=== PATIENT | male | born 2000 | race Caucasian/White ===

== ENCOUNTER → 2024-01-11 15:17 | Outpatient (CLI) | payer OTHER, SELFPAY ==
[2024-01-11 16:21] LABS: Influenza A - CEPHEID Flu A NEGATIVE (NEGATIVE); Influenza B - CEPHEID Flu B NEGATIVE (NEGATIVE); Respiratory Syncytial Virus Negative (Negative)
[2024-01-11 16:25] LABS: COVID-19 CEPHEID 4-PLEX PCR Negative (Negative)
== END ==
PROVIDERS: Visit Provider Physician Assistant Medical
DX: J02.9 Acute pharyngitis, unspecified (principal); R05.9 Cough, unspecified
CPT/HCPCS: 0241U; 87070

== ENCOUNTER → 2024-02-20 09:28 | Outpatient (CLI) | payer OTHER, SELFPAY ==
--- NOTE | 2024-02-20 09:29 | DI.RAD.S_ITS ---
PROCEDURE: XR KUB INDICATIONS: Possible Kidney Stones TECHNIQUE: One view of the abdomen acquired. COMPARISON: None. FINDINGS: Surgical changes and devices: None. Bowel: Bowel gas pattern is normal. Moderate amount of stool in colon. Soft tissues: Question a 4 mm stone in the superior pole of the right kidney. Visualized solid organ contours appear normal in size. Bones: No suspicious bony lesions. IMPRESSION: 1. Question a 4 mm stone in right kidney. If clinically indicated, CT KUB would be helpful. Dictated by: Gio Mcneill M.D. on 02/20/2024 at 16:29 Approved by: Gio Mcneill M.D. on 02/20/2024 at 16:30
== END ==
PROVIDERS: Referring Provider Nurse Practitioner Family; Visit Provider Nurse Practitioner Family
DX: N20.0 Calculus of kidney (principal)
CPT/HCPCS: 74018

== ENCOUNTER → 2024-10-27 07:40 | Outpatient (CLI) | payer OTHER, SELFPAY ==
--- NOTE | 2024-10-27 07:41 | DI.CT.S_ITS ---
PROCEDURE: CT KIDNEY URETER BLADDER (KUB) INDICATIONS: recurrent kidney stones TECHNIQUE: Axial sections were acquired from the lung bases to the pubic symphysis. Coronal and sagittal reformats were performed. For radiation dose reduction, the following was used: automated exposure control, adjustment of mA and/or kV according to patient size. COMPARISON: None. FINDINGS: Image quality: Diagnostic Lower chest: Lung bases appear unremarkable. Mildly patulous distal esophagus. Normal heart size Liver: Solid organs are not well assessed without IV contrast. No contour deforming mass Gallbladder and biliary system: Unremarkable, nondilated Pancreas: No ductal dilation Spleen: Mildly enlarged at 15 centimeters Adrenals: No discrete nodules Kidneys: 8 x 5 x 5 millimeter stone is seen in the right proximal ureter, with mild upstream hydronephrosis. Many other stones are seen in both kidneys, the largest in the left kidney measures up to 7 x 4 millimeters. Vessels and lymph nodes: No abdominal aortic aneurysm. No pathologic lymphadenopathy by size criteria Bowel and peritoneum: No small bowel obstruction Nondilated appendix. No pathologic ascites Body wall: Unremarkable Pelvis: Bladder is unremarkable. Prostate is not well assessed on this study. Bones: No aggressive appearing osseous findings. IMPRESSION: Partially obstructing stone is seen in the right proximal ureter measuring 8 x 5 millimeters. Many other nonobstructing calculi are seen in both kidneys measuring up to 7 millimeters in the left. Other findings above. This study was marked in PACS as a result for communication and follow-up. Dictated by: Vince Valerio M.D. on 10/27/2024 at 9:25 Approved by: Vince Valerio M.D. on 10/27/2024 at 9:29
== END ==
PROVIDERS: PCP Family Medicine; Referring Provider Family Medicine; Visit Provider Family Medicine
DX: N20.0 Calculus of kidney (principal); R16.1 Splenomegaly, not elsewhere classified
CPT/HCPCS: 74176

== ENCOUNTER → 2024-11-24 15:45 | Outpatient (CLI) | payer OTHER, SELFPAY ==
--- NOTE | 2024-11-24 15:46 | DI.CT.S_ITS ---
PROCEDURE: CT KIDNEY URETER BLADDER (KUB) INDICATIONS: 24 y/o M w/ 8mm proximal right ureterolith, eval for passage TECHNIQUE: Axial sections were acquired from the lung bases to the pubic symphysis. Coronal and sagittal reformats were performed. For radiation dose reduction, the following was used: automated exposure control, adjustment of mA and/or kV according to patient size. COMPARISON: [facility], CT, CT KIDNEY URETER BLADDER (KUB), 10/27/2024, 7:49. FINDINGS: Image quality: Diagnostic. Lower Chest: No significant findings. URINARY: Right Kidney: Multiple nonobstructing nephrolithiasis. Mild hydronephrosis Right Ureter: Redemonstration of 8 mm calculus in the right proximal ureter. Left Kidney: Multiple nonobstructing nephrolithiasis, measuring up to 8 mm in the inferior pole. No hydronephrosis Left Ureter: No hydroureter. Bladder: Normal wall thickness. No stones. ABDOMEN: Liver: No contour-deforming solid mass. Gallbladder: No radiopaque gallstones or wall thickening. Biliary ducts: No biliary dilation. Pancreas: No ductal dilation. Spleen: Size is within normal limits. Adrenal Glands: No adrenal nodules. Stomach and Bowel: Normal colonic caliber, without significant wall thickening. Normal appendix Peritoneum: No abnormal intraperitoneal fluid. No free air. Ventral Wall: No hernia. Abdominal Nodes: No enlarged retroperitoneal or mesenteric lymph nodes. Vessels: Aorta and inferior vena cava are normal in size. PELVIS: Pelvic Organs: Unremarkable. Pelvic Nodes: Unremarkable. Miscellaneous: No inguinal hernias are seen. Bones: Unremarkable. IMPRESSION: Compared to prior CT 10/27/2024, similar positioning of 8 mm obstructing calculus in the right proximal ureter with mild upstream hydronephrosis. Additional bilateral nonobstructing renal calculi. Approved by: Razia Dorado M.D.,Ph.D. on 11/25/2024 at 6:20
== END ==
LOC: CT 15:45
PROVIDERS: PCP Family Medicine; Referring Provider Urology; Visit Provider Urology
DX: N13.2 Hydronephrosis with renal and ureteral calculous obstruction (principal)
CPT/HCPCS: 74176

== ENCOUNTER → 2024-12-16 16:49 | Outpatient (CLI) | payer OTHER, SELFPAY | PROVIDERS: PCP Family Medicine; Visit Provider Urology | DX: R39.9 Unspecified symptoms and signs involving the genitourinary system (principal) | CPT/HCPCS: 87086 ==

== ENCOUNTER 2024-12-24 07:48 | Day surgery (SDC) | payer OTHER, SELFPAY ==
[2024-12-22 12:22] VITALS: BMI 22.9
[2024-12-24] VITALS (9 sets, daily range): BP systolic 96–118; BP diastolic 58–76; PULSE 48–81; RESP 12–20; TEMP 36.3–36.9; O2SAT 99–100; BMI 23.6
--- NOTE | 2024-12-24 | DI.RAD.S_ITS ---
PROCEDURE: XR ABDOMEN 2V INDICATIONS: STENT PLACEMENT TECHNIQUE: 2 intra-operative images acquired by the Urology service. COMPARISON: None. FINDINGS: 2 fluoroscopic spot images, procedure reported separately. Right ureteral double-J stent is in place with the proximal and in the expected location of the right upper pole calyx and the distal and at the expected location of the urinary bladder. Dilated renal pelvis and calices noted. IMPRESSION: Right ureteral stent placement Dictated by: Luan Arguello M.D. on 12/25/2024 at 23:23 Approved by: Luan Arguello M.D. on 12/25/2024 at 23:24
[2024-12-24] MEDS: LACTATED RINGERS 1,000 ML 21 ML IV ×2 (08:40→11:44)
[2024-12-24] MEDS: FAMOTIDINE 20 MG/2 ML VIAL IV (08:40)
[2024-12-24] MEDS: ACETAMINOPHEN 325 MG TABLET 975 MG PO (08:41)
--- NOTE | 2024-12-24 09:12 | PM.PREOP ---
Pre-operative Note COVID-19 COVID-19 status: Not tested Interval Note History & Physical reviewed/Exam performed by Physician: Yes Changes to H&P: No
[2024-12-24] MEDS: levoFLOXacin 500 MG/100 ML PIGGYBACK 100 MG IV (09:58)
--- NOTE | 2024-12-24 10:11 | SUR.OPER ---
Lithotomy on padded OR bed, head on pillow, arms secured on padded arm boards at <90 degrees abduction. Legs secured in padded yellow fins stirrups.
[2024-12-24] MEDS: iopamidoL 30 ML VIAL INJ (10:21)
[2024-12-24] MEDS: ONDANSETRON 4 MG/2 ML INJ IV (11:17)
--- NOTE | 2024-12-24 11:27 | P.OP_ITS ---
Operative Date/Time/Diagnoses Date of procedure: 12/24/24 Pre-op diagnosis: Right ureteral calculus Post-op diagnosis: same Procedure & Clinicians Procedure: Cystoscopy Right retrograde ureteropyelogram Right ureteroscopy, laser lithotripsy Right ureteral stent placement Intraoperative interpretation of fluoroscopic images, total time < 1 hour Same procedure as scheduled: Yes Indications: 24 y/o M noted to have an 8mm right proximal ureterolith w/ resultant upstream mild hydroureteronephrosis and a few small non-obstructing right and left nephroliths. Discussed treatment options to include continued medical expulsion therapy (not recommended as he has been trying to pass this for nearly 2 months now and is having worsening pain and gross hematuria) vs cystoscopy, ureteroscopy, laser lithotripsy with ureteral stent placement. Informed consent was obtained for the aforementioned procedure. Surgeon: Ritchie Levine Anesthesia Type: General Operative Notes Findings: Large distal right ureterolith, several small right nephroliths Closure Type: not applicable Specimen(s): other (right ureteral stones) Estimated Blood Loss (mL): 2 Procedure in detail: Patient was identified in the preoperative holding area and consent confirmed. He was then brought to the operating room where general anesthesia was induced.? He was placed in the low lithotomy position. He was then prepped and draped in the usual sterile fashion. A surgical timeout was conducted and all were in agreement. Access to the bladder was obtained via a 30 degree cystoscope.? Complete cystoscopy was then performed and no concerning bladder masses or lesions were appreciated.? Bilateral ureteral orifices were easily identified and noted to be orthotopic in nature.? The right ureteral orifice was then cannulated using a 0.035 sensor tip ureteral guidewire and a 5Fr ureteral catheter was advanced over the guidewire and into the distal right ureter.? The guidewire was then removed and a retrograde ureteropyelogram was performed which noted a large filling defect within the distal right ureter, concerning for migration of his stone into the distal right ureter? The ureteral guidewire was then readvanced through the ureteral catheter and into the right renal pelvis.? The ureteral catheter was then removed and a semirigid ureteroscope was easily advanced into her right ureter alongside the guidewire and to the level of the stone.? A 200 micron laser fiber was then utilized to perform laser lithotripsy.? All stone fragments >1mm in size were removed via the stone basket and sent for chemical analysis.? The ureteroscope was then removed and an 11/13Fr ureteral access sheath was advanced over the guidewire and into the proximal right ureter. The inner obturator and guidewire were then removed and complete pyeloscopy was performed. He was noted to have several small nephroliths that were all removed via the stone basket. The ureteral guidewire was then readvanced through the ureteroscope and into his right renal pelvis. The ureter was then directly visualized upon removal of the ureteroscope and noted to be stone free. Un fortunately, he was noted to have severe ureteral edema within his distal right ureter where his previous stone had become impacted.? The cystoscope was then backloaded over the ureteral guidewire and into the bladder. A 6Fr multi-length JJ ureteral stent without string was then advanced over the ureteral guidewire.? Upon removal of the guidewire, a good curl was noted in the right renal pelvis u sonido fluoroscopy and visually within the bladder.? The bladder was then drained.? Anesthesia was reversed, he was extubated in the OR and transferred to the PACU in stable condition for recovery. Complications: none Post-operative Condition: stable Disposition: PACU Plan for aftercare: Discharge home from PACU. Will return to Urology clinic at 0920 on 10 Jan 2025 to have his stent removed via cystoscopy.
[2024-12-24] MEDS: OXYCODONE IR 5 MG TABLET PO (11:29)
--- NOTE | 2024-12-24 12:05 | SUR.PHASEII ---
Patient ambulatory to the bathroom with minimial assist; voided without difficulty. Significant other at bedside. No needs at this time. Tolerating PO fluids without difficulty.
--- NOTE | 2024-12-24 12:33 | SUR.PHASEII ---
Home wtih significant other in stable condition with paperwork and all belongings . RX at the pharmacy.
[2025-01-03 08:39] LABS: Ca oxalate dihydrate 80 % (.); Ca oxalate monohydr 20 % (.); Size 3x3 mm (.); Stone Analysis Source Ureter (.)
== END 2024-12-24 12:33 | disposition home or self-care (01) ==
PROVIDERS: PCP Family Medicine; Referring Provider Urology; Visit Provider Urology
PROC: 0TF68ZZ Fragmentation in Right Ureter, Via Natural or Artificial Opening Endoscopic (ICD-10-PCS; CPT 52353; principal; 2024-12-24 09:30)
DX: N13.2 Hydronephrosis with renal and ureteral calculous obstruction (principal); F17.210 Nicotine dependence, cigarettes, uncomplicated
CPT/HCPCS: 52356; 52353; 74018; 74420; 76000; 82365; C2617; J1100; J1956; J2250; J2405; J2704; J3010; Q9967

== ENCOUNTER → 2025-04-07 13:34 | Outpatient (CLI) | payer OTHER, SELFPAY ==
--- NOTE | 2025-04-07 13:35 | DI.US.S_ITS ---
PROCEDURE: US RENAL COMPLETE INDICATIONS: 25 y/o M s/p right ureteroscopy for stone, eval for hydro TECHNIQUE: Real-time scanning was performed of the kidneys and bladder, with image documentation. COMPARISON: None. FINDINGS: Kidneys: Kidneys are normal in size. Right kidney measures 10.0 cm long; left kidney measures 10.4 cm long. Right renal cortical thickness is 1.3 cm; left renal cortical thickness is 1.2 cm. Renal cortical echotexture is normal. No hydronephrosis or nephrolithiasis. No suspicious solid mass lesions. Bladder: Pre-void and postvoid urinary bladder volume were not measured. Pre- void images demonstrate no intraluminal masses or stones. On pre-void images, bilateral ureteral jets are noted with color Doppler interrogation. (Of note, ureteral jets may not be detectable in up to 25% of cases due to insufficient differences in specific gravity between ureteral and bladder urine). Miscellaneous: No free pelvic fluid. IMPRESSION: Unremarkable sonographic evaluation of the bilateral kidneys. No evidence for obstructive uropathy. Dictated by: Michel Jack M.D. on 04/08/2025 at 10:43 Approved by: Michel Jack M.D. on 04/08/2025 at 10:45
== END ==
PROVIDERS: PCP Family Medicine; Referring Provider Urology; Visit Provider Urology
DX: N20.1 Calculus of ureter (principal)
CPT/HCPCS: 76770

== ENCOUNTER 2025-07-22 09:46 | Emergency (ER) | payer OTHER, SELFPAY ==
[2025-07-22 09:49] VITALS: BP 108/70; PULSE 77; RESP 13; TEMP 36.5; O2SAT 100; BMI 23.6
--- NOTE | 2025-07-22 10:05 | DI.CT.S_ITS ---
4PROCEDURE: CT ABDOMEN PELVIS W CON INDICATIONS: Upper abdominal pain, diarrhea TECHNIQUE: After the administration of intravenous contrast, axial sections acquired from the lung bases to the pubic symphysis. Coronal and sagittal reformats were performed. For radiation dose reduction, the following was used: automated exposure control, adjustment of mA and/or kV according to patient size. COMPARISON: [facility], CT, CT KIDNEY URETER BLADDER (KUB), 11/24/2024, 15:50. [facility], US, US RENAL COMPLETE, 04/07/2025, 13:58. FINDINGS: Image quality: Diagnostic. Lower Chest: No significant findings. ABDOMEN: Liver: No solid mass. Mac row falls of form Gallbladder: No radiopaque gallstones or wall thickening. Biliary ducts: No biliary dilation. Pancreas: No ductal dilation. Spleen: The spleen is enlarged, measuring 13.8 cm AP. Incidental note is made of an accessory splenule along the posterior aspect of the primary spleen. Adrenal Glands: No adrenal nodules. Kidneys and Ureters: No hydronephrosis. No solid mass. No complex renal cystic lesion which requires follow up. Nonobstructing left-sided kidney stones are seen, measuring up to 5 mm and 400 Hounsfield units. No definite right-sided kidney stones are now seen. Stomach and Bowel: There is ladi-or-fjzceveu generalized colonic wall thickening. The colon is relatively collapsed. Areas of bowel wall thickening can be seen involving the distal small bowel. A normal appendix is noted. Peritoneum: No abnormal intraperitoneal fluid. No free air. Ventral Wall: No significant ventral hernia. Abdominal Nodes: No retroperitoneal or mesenteric adenopathy by size criteria. Vessels: Aorta and inferior vena cava are normal in size. PELVIS: Pelvic Organs: Unremarkable. Bladder: There is a 3-4 mm nonobstructing stone seen within the urinary bladder. No bladder wall thickening, accounting for underdistention. Pelvic Nodes: No enlarged lymph nodes. Miscellaneous: No inguinal hernias are seen. Bones: No aggressive osseous abnormality. IMPRESSION: 3-4 mm nonobstructing stone within the bladder. Please consider a recently passed stone. No ureteral stone or hydronephrosis can be seen. Left-sided kidney stones are seen. There is icdr-rp-ggfctjff generalized colonic wall thickening seen and there is ibji-tz-kopedlvs wall thickening seen involving the distal small bowel. Please consider enterocolitis. Additional findings: Mild splenomegaly The accessory splenule Dictated by: Lalito Fonseca M.D. on 07/22/2025 at 10:01 Approved by: Lalito Fonseca M.D. on 07/22/2025 at 10:04
--- NOTE | 2025-07-22 10:07 | ED.ABDPAIN ---
HPI - Abdominal Pain General Chief Complaint: Abdominal Pain Stated Complaint: abd pain after meddr wu come in Time Seen by Provider: 07/22/25 10:00 Source: patient Mode of arrival: Ambulatory History of Present Illness HPI narrative: 25 years old male with history of depression came in today complaining of upper abdominal pain as sharp intermittent pain since woke up this morning with 1 episode of diarrhea without blood, black stool, mucus. His last food was lunch yesterday with hamburger. He denied any nausea vomiting, fever, runny nose, sore throat, coughing, chest pain, shortness of breath, urine problem. He went to bed last night was 5 without any pain. Related Data Previous Rx's ?Medication ?Instructions ?Recorded ondansetron 4 mg disintegrating 4 mg PO Q6H PRN nausea and 07/22/25 tablet vomiting #20 tabs Allergies Allergy/AdvReac Type Severity Reaction Status Date / Time amoxicillin Allergy Unknown Verified 07/22/25 09:49 Review of Systems Review of Systems Narrative: Positive for abdominal pain, diarrhea. Negative for fever, runny nose, sore throat, coughing, chest pain, shortness of breath, nausea vomiting, urine problem. Patient History Medical History Dizziness Back pain Anxiety History of kidney stones Family History Uncle Kidney stones Social History marital status: unmarried,single household members: significant other Tobacco: How many years used: 1 Smokeless tobacco user: other alcohol intake: current caffeine: Yes Type(s) of exercise: yoga frequency: 1-2 times per week duration: 30-45 minutes/day Smoking Status: Current every day smoker Exam Narrative Exam Narrative: GENERAL: Alert awake without acute distress. HEAD: Atraumatic. Normocephalic. NECK: Trachea midline. Non tender CARDIOVASCULAR: Regular rate and rhythm without murmurs, gallops, or rubs. RESPIRATORY: Clear to auscultation. Breath sounds equal bilaterally. No wheezes, rales, or rhonchi. GASTROINTESTINAL: Mild tenderness on palpation upper abdomen without guarding or rebound tenderness, no distention. EXTREMITIES: No edema or joint tenderness. BACK: Nontender without deformity or crepitance. No flank tenderness. NEURO: AOx3. SKIN: No rash or erythema of visible areas Initial Vital Signs Initial Vital Signs: Vital Signs Temperature 97.7 F 07/22/25 09:49 Pulse Rate 77 07/22/25 09:49 Respiratory Rate 13 07/22/25 09:49 Blood Pressure 108/70 07/22/25 09:49 Pulse Oximetry 100 07/22/25 09:49 Oxygen Delivery Method Room Air 07/22/25 09:49 Course Orders Ordered: ED Orders 07/22/25 09:56 Complete Blood Count AUTO DIFF Stat Comprehensive Metabolic Panel Stat Lipase Stat 07/22/25 10:05 CT abdomen pelvis w con Stat Ondansetron HCl (Ondansetron 4 Mg/2 Ml Inj) 4 mg IV NOW PRN PRN Reason: Nausea And Vomiting Ondansetron HCl (Ondansetron 4 Mg Odt) 4 mg PO NOW PRN PRN Reason: Nausea And Vomiting Discontinued Medications Hydromorphone HCl (Hydromorphone Hcl 0.5 Mg/0.5 Ml Syringe) 0.5 mg IV NOW ONE Stop: 07/22/25 10:06 Last Admin: 07/22/25 10:17 Dose: 0.5 mg Sodium Chloride (Normal Saline 0.9%) 1,000 mls @ 1,000 mls/hr IV BOLUS ONE Stop: 07/22/25 11:04 Last Infusion: 07/22/25 11:12 Dose: Infused Vital Signs Vital signs: Vital Signs - 8 hr 07/22/25 09:49 07/22/25 10:09 07/22/25 10:09 Temperature 97.7 F Pulse Rate 77 82 Respiratory Rate 13 Blood Pressure 108/70 119/72 Pulse Oximetry 100 100 Oxygen Delivery Method Room Air 07/22/25 10:30 07/22/25 10:30 07/22/25 10:44 Temperature Pulse Rate 79 61 Respiratory Rate 24 12 Blood Pressure 120/64 Pulse Oximetry 99 100 Oxygen Delivery Method 07/22/25 10:44 07/22/25 11:00 07/22/25 11:00 Temperature Pulse Rate 69 Respiratory Rate 24 Blood Pressure 112/67 115/71 Pulse Oximetry 100 Oxygen Delivery Method MDM - Abdominal Pain Lab Data 07/22/25 10:00 07/22/25 10:00 Labs: Lab Results 07/22/25 Range/Units 10:00 WBC 4.8 (4.5-11.0) X10^3/uL RBC 4.56 (4.5-5.9) X10^6/uL Hgb 14.7 (13.5-17.5) g/dL Hct 41.8 (41-53) % MCV 91.6 (80-100) fL MCH 32.3 (26-34) PG MCHC 35.2 (30-36) % RDW 14.7 (11.6-14.8) % Plt Count 308 (150-400) X10^3/uL Neut % (Auto) 66.0 (50-75) % Lymph % (Auto) 27.2 (25-40) % [place] % (Auto) 5.6 (3-14) % Eos % (Auto) 0.6 L (2-4) % Baso % (Auto) 0.6 (0-2) % Neut # (Auto) 3100 (6831-3044) /uL Lymph # (Auto) 1300 (6617-5535) /uL [place] # (Auto) 300 (0-900) /uL Eos # (Auto) 0 (0-450) /uL Baso # (Auto) 0 (0-100) /uL Sodium 140 (137-145) mmol/L Potassium 4.5 (3.4-5.1) mmol/L Chloride 103 (98-107) mmol/L Carbon Dioxide 27 (22-32) mmol/L BUN 11 (9-20) mg/dL Creatinine 1.07 (0.66-1.25) mg/dL Estimated GFR > 60 (>60) mL/min BUN/Creatinine Ratio 10.3 (6-22) Glucose 97 (70-99) mg/dL Calcium 9.7 (8.4-10.2) mg/dL Total Bilirubin 2.2 H (0.2-1.3) mg/dL AST 26 (17-59) IU/L ALT 18 (<50) IU/L Alkaline Phosphatase 83 (38-126) U/L Total Protein 8.0 (6.3-8.2) g/dL Albumin 5.1 H (3.5-5.0) g/dL Globulin 2.9 (1.7-4.1) g/dL Albumin/Globulin Ratio 1.8 (1.0-2.8) Lipase 62 (23-300) U/L Point of care testing: Urine Dip Bedside Urine Glucose Negative Bedside Urine Bilirubin - Negative Bedside Urine Ketone - Negative Urine Specific [place] 1.010 Bedside Urine Occult Blood - Negative Bedside Urine pH 8.0 Bedside Urine Protein - Negative Bedside Urine Urobilinogen - Negative Bedside Urine Nitrite - Negative Bedside Urine Leukocytes - Negative Esterase MDM Narrative Medical decision making narrative: 25 years old male with history of depression came in today complaining of upper abdominal pain as sharp intermittent pain since woke up this morning with 1 episode of diarrhea without blood, black stool, mucus. His last food was lunch yesterday with hamburger. He denied any nausea vomiting, fever, runny nose, sore throat, coughing, chest pain, shortness of breath, urine problem. He went to bed last night was 5 without any pain. on exam showed mild tenderness on palpation upper abdomen without guarding or rebound tenderness or distention. His CV exam, lung exam, abdominal exam were normal. He alert oriented x4 without acute distress. Normal CBC, lipase. CMP showed elevation total bilirubin otherwise normal CMP. Normal UA. CT scan abdomen and pelvis showed 3-4 mm nonobstructing stone within the bladder could consider recent passed stone no further ureteric stone or hydronephrosis. Stone in the left kidney. There is hvzq-dk-coessucl generalized colonic wall thickening seen and there is wmgc-nt-vhromlbr wall thickening seen involving the distal small bowel. Please consider enterocolitis. He was given IV normal saline, Zofran, Dilaudid and was feeling better. I think the mild elevation total bilirubin could be from dehydration due to diarrhea. return to the ED precautions was given. He was sent home with Zofran and to drink plenty of fluid. He was given work note. He agree with the plan. Discharge Plan Departure Patient Disposition: Home Clinical Impression: Acute upper abdominal pain, Diarrhea Instructions: Diarrhea, DI for Abdominal Pain-Adult Activity Restrictions/Additional Instructions: please come back to the emergency room if any worsening symptoms including but not limited to fever, persistent vomiting, dehydration, worsening pain, blood or mucus in the stool. Please set up primary care doctor for follow up as well. Please drink plenty of fluid. Prescriptions: New ondansetron 4 mg tablet,disintegrating 4 mg PO Q6H PRN (Reason: nausea and vomiting) Qty: 20 0RF Referrals: Abraham Aguayo MD [Primary Care Provider, Family Practice] Stand Alone Forms: Patient Portal/API, Work Release Note
[2025-07-22 10:09] VITALS: BP 119/72; PULSE 82; O2SAT 100
[2025-07-22 10:16] LABS: Add Manual Diff / Slide Review NO; Hematocrit 41.8 % (41-53); Hemoglobin 14.7 g/dL (13.5-17.5); Lymphocytes Absolute Auto 1300 /uL (1100-4500); Mean Corpuscular HGB Conc 35.2 % (30-36); Mean Corpuscular Hemoglobin 32.3 PG (26-34); Mean Corpuscular Volume 91.6 fL (80-100); Platelet Count 308 X10^3/uL (150-400)
[2025-07-22] MEDS: SODIUM CHLORIDE 0.9% 1,000 ML 1000 ML IV (10:17)
[2025-07-22 10:28] LABS: Alanine Aminotransferase 18 IU/L (<50); Albumin 5.1 g/dL (3.5-5.0); Albumin Globulin Ratio 1.8 (1.0-2.8); Alkaline Phosphatase 83 U/L (38-126); Blood Urea Nitrogen 11 mg/dL (9-20); Calcium 9.7 mg/dL (8.4-10.2); Carbon Dioxide 27 mmol/L (22-32); Chloride 103 mmol/L (98-107); Estimated Glomerular Filt Rate > 60 mL/min (>60); Globulin 2.9 g/dL (1.7-4.1); Glucose 97 mg/dL (70-99); HEMOLYSIS < 15 (0-50); Lipase 62 U/L (23-300); Potassium 4.5 mmol/L (3.4-5.1); Sodium 140 mmol/L (137-145); Total Protein 8.0 g/dL (6.3-8.2)
[2025-07-22 10:30] VITALS: BP 120/64; PULSE 79; RESP 24; O2SAT 99
[2025-07-22 10:44] VITALS: BP 112/67; PULSE 61; RESP 12; O2SAT 100
[2025-07-22 11:00] VITALS: BP 115/71; PULSE 69; RESP 24; O2SAT 100
--- NOTE | 2025-07-22 11:13 | PC.NURSE ---
Patient got up and was able to self ambulate to the the bathroom and provide a urine sample.
[2025-07-22 12:42] VITALS: BP 108/61; PULSE 74; RESP 16; TEMP 36.9; O2SAT 100
== END 2025-07-22 12:47 | disposition home or self-care (01) ==
PROVIDERS: Emergency Provider Emergency Medicine; PCP Family Medicine
DX: R10.10 Upper abdominal pain, unspecified (principal); R19.7 Diarrhea, unspecified
CPT/HCPCS: 36415; 74177; 80053; 81003; 83690; 85025; 96361; 96374; 99284; J1171; J7030; Q9967